=== PATIENT | male | born 1945 | race Caucasian/White ===

== ENCOUNTER 2018-02-05 08:57 | Outpatient (CLI) | payer MEDICARE ==
--- NOTE | 2018-02-11 12:17 | MRI ---
MRI BRAIN WIHTOUT CONTRAST: HISTORY: R41.3, memory loss; R29.6, frequent falls. COMPARISON: None. FINDINGS: On diffusion weighted imaging sequence, there are no abnormal areas of diffusion or restriction to ayon ggest acute infarction. This is confirmed on the ADC map. Moderate susceptibility with imaging sequence. No abnormal areas of hemorrhage. The left vertebral artery is hypoplastic. The [place] flow voids are maintained. There is minimal right quispe radiata gliosis. No midline shift. No mass effect. No hydrocephalus. The globes are intact. The paranasal sinuses are clear as well as the mastoids. Corpus callosum is normal. The marrow signal of the upper cervical spine as well as the clivus is i ntact. IMPRESSION: No acute intracranial abnormality. No evidence of recent infarction or hemorrhage. POS: LIZ
== END 2018-02-05 08:58 | disposition home or self-care (01) ==
LOC: SCSMRI 08:57
PROVIDERS: ATTEND Family Medicine
DX: R41.3 Other amnesia (principal); R29.6 Repeated falls
CPT/HCPCS: 70551

== ENCOUNTER 2020-03-18 05:55 | Day surgery (SDC) | payer MEDICARE ==
[2020-03-17 09:12] VITALS: BMI 23.8
[2020-03-18] MEDS ORDERED: Levofloxacin 500 mg/D5W 100 ml Premix Bag ONE (06:24)
[2020-03-18] MEDS ORDERED: Propofol 500 MG/50 ML VIAL ONE (07:03)
[2020-03-18] MEDS ORDERED: Lidocaine 2% PF 5 ML VIAL ONE (07:04)
[2020-03-18] MEDS ORDERED: B & O ONE ×2 (08:08→08:10)
--- NOTE | 2020-03-18 09:25 | OP ---
DATE OF PROCEDURE: 03/18/2020 SERVICE: Urology. PREOPERATIVE DIAGNOSIS: BPH with urinary obstruction. POSTOPERATIVE DIAGNOSIS: BPH with urinary obstruction. PROCEDURE PERFORMED: UroLift with 6 implants. INDICATIONS FOR PROCEDURE: Mr. Alvarado is a 74-year-old white male with BPH and urinary symptoms. He underwent workup, which demonstrated enlarged prostate with significant hypertrophy. He would be a suitable candidate for UroLift, which we discussed. After risks and benefits, he agreed to proceed forward. DESCRIPTION OF PROCEDURE: After identification of armband and verification of consent, the patient was brought back to the operating room, where he underwent total intravenous anesthesia. He was then placed in dorsal lithotomy position and prepped and draped in usual sterile fashion. After appropriate time-out, a lubricated 21-Gibralt[place] rigid cystoscope was introduced per urethra with visual obturator into the bladder. The bladder showed inflammatory changes throughout, but no tumors or concerning features. The urine was somewhat turbid. The visual obturator was switched out for the UroLift implant gun. The initial implant was placed at the patient's left base of the prostate. It was positioned at the bladder neck and then withdrawn approximately 2.5 cm. At which point, lateral and anterior compression was applied. The safety was released and then the blue trigger squeezed to deploy the Nitinol needle. Tension was set and the capsular tab placed using the tran trigger. The UroLift was then advanced forward until the white line was in the keyhole and then the release for the urethral end piece done with a blue trigger on the back. This resulted in nice compression of the left base of the prostate. This was then repeated on the right base of the prostate and again at the left apex and right apex, which developed a nice channel through the prostate; however, there was sagging from the anterior prostate and the patient did have an elevated bladder neck. I elected to place anterior implants. Two additional implants were placed approximately mid prostate a little toward the bladder neck to raise the anterior aspect of the prostate and bladder neck to create a nice channel. Upon completion, there was a wide-open channel from the patient's bladder neck all the way to the verumontanum. Satisfied the prostate was no longer obstructive. The bladder was left full, and the cystoscope was then removed. An 18-[place] Lopez catheter was placed with ease into the bladder and 10 mL of sterile water was placed into the balloon. This was hooked up to gravity drainage. B and O suppositories were placed in the patient's rectum. He was taken out of positioning, awakened, taken to Day Stay for recovery in stable condition. COMPLICATIONS: None. ESTIMATED BLOOD LOSS: Minimal. RETAINED TUBES AND DRAINS: An 18-[place] Lopez catheter. IMPLANTS USED: Six. DISPOSITION: The patient will give consideration to a void trial based on the amount of bleeding noted in his urine. If he keeps the catheter, he will return tomorrow for a void trial in office. If his catheter is removed today and he is able to urinate, then he will be discharged to home and follow up in approximately 1 week for a postop check. Job ID: [id number]
[2020-03-18] MEDS ORDERED: Lidocaine 1% PF 5 ML VIAL ONE (10:19)
[2020-03-18] MEDS ORDERED: PROPOFOL 200 MG/20 ML VIAL ONE (10:19)
== END 2020-03-18 13:20 | disposition home or self-care (01) ==
LOC: SDC 05:55
PROVIDERS: ATTEND Urology
PROC: 0T7D8DZ Dilation of Urethra with Intraluminal Device, Via Natural or Artificial Opening Endoscopic (ICD-10-PCS; principal; 2020-03-18)
DX: N40.1 Benign prostatic hyperplasia with lower urinary tract symptoms (principal); N13.8 Other obstructive and reflux uropathy; R39.12 Poor urinary stream; R39.15 Urgency of urination; R35.0 Frequency of micturition; R35.1 Nocturia; E11.9 Type 2 diabetes mellitus without complications; R41.3 Other amnesia; Z79.4 Long term (current) use of insulin; Z79.82 Long term (current) use of aspirin; Z79.899 Other long term (current) drug therapy
CPT/HCPCS: 82962; C1889; C9740; 36416; J1956; J2704

== ENCOUNTER 2021-10-21 04:43 | Emergency (ER) | payer MEDICARE, SELFPAY ==
[2021-10-21] MEDS ORDERED: Midazolam HCl 2 mg/2 ml Vial ONE ×3 (04:52→05:44)
[2021-10-21] MEDS ORDERED: Calcium Chloride 1 GM/10 ML Abboject SYRINGE ONE (04:54)
[2021-10-21 05:05] LABS: #Basophils 0.1 thou/uL (0.0-0.2); #Eosinphils 0.6 thou/uL (0.0-0.7); #Lymphocytes 2.1 thou/uL (1.20-3.40); #Monocytes 0.8 thou/uL (0.11-0.59); #Neutrophils 4.5 thou/uL (1.40-6.50); %Basophils 0.6 % (0.0-1.0); %Eosinophils 7.1 % (0.0-10.0); %Monocytes 9.9 % (0.0-10.0); %Neutrophils 56.4 % (42.0-75.0); Hemoglobin 14.5 g/dL (14.0-18.0); Mean Corpuscular HGB CONC 32.9 g/dL (32.0-36.0); Mean Corpuscular Volume 94.3 fL (78.0-98.0); Mean Platelet Volume 5.7 fL (7.4-10.4); Platelet Count 337 thou/uL (130-400); RBC Distribution Width 11.5 % (11.5-14.5); Red Blood Cell (RBC) Count 4.66 mill/uL (4.70-6.10)
[2021-10-21 05:26] LABS: ALT (SGPT) 13 U/L (8-55); AST (SGOT) 14 U/L (5-34); Albumin 3.5 g/dL (3.4-4.8); Alkaline Phosphatase 70 U/L (40-110); Anion Gap 13 mmol/L (10-20); BUN (Urea Nitrogen) 20 mg/dL (8.4-25.7); Bilirubin, Total 0.5 mg/dL (0.2-1.2); CK (CPK) 78 U/L (30-200); Calc. Creatinine Clearance 0 mL/min (70-130); Calcium 8.6 mg/dL (7.8-10.44); Carbon Dioxide 23 mmol/L (23-31); Chloride 110 mmol/L (98-107); Globulin 2.6 g/dL (2.4-3.5); Glucose 185 mg/dL (83-110); Potassium 3.7 mmol/L (3.5-5.1); Protein, Total 6.1 g/dL (5.8-8.1); Sodium 142 mmol/L (136-145)
[2021-10-21 05:58] LABS: SARS-CoV-2 NAA Rapid Test Not Detected (NotDetected)
== END 2021-10-21 05:45 | disposition short-term general hospital (02) ==
LOC: ERS 04:43
DX: I44.2 Atrioventricular block, complete (principal); E11.9 Type 2 diabetes mellitus without complications; I10 Essential (primary) hypertension; Z20.822 Contact with and (suspected) exposure to COVID-19
CPT/HCPCS: 36415; 71045; 80053; 82550; 84484; 85025; 93005; 96374; 96375; 96376; J2250; U0002

== ENCOUNTER 2022-12-06 12:38 | Outpatient (CLI) | payer OTHER | END 2022-12-06 12:39 | disposition home or self-care (01) | LOC: MRI 12:38 | PROVIDERS: ATTEND Neurological Surgery | DX: M25.562 Pain in left knee (principal); S82.435A Nondisplaced oblique fracture of shaft of left fibula, initial encounter for closed fracture; S83.242A Other tear of medial meniscus, current injury, left knee, initial encounter; M22.92 Unspecified disorder of patella, left knee; R60.0 Localized edema; M25.462 Effusion, left knee ==

== ENCOUNTER 2024-05-19 16:13 | Outpatient (CLI) | payer OTHER | END 2024-05-19 16:14 | disposition home or self-care (01) | LOC: BICRAD 16:13 | PROVIDERS: ATTEND Nurse Practitioner Family | DX: M79.89 Other specified soft tissue disorders (principal) ==

== ENCOUNTER 2025-01-16 15:18 | Outpatient (CLI) | payer OTHER | END 2025-01-16 15:19 | disposition home or self-care (01) | LOC: ULT 15:18 | PROVIDERS: ATTEND Orthopaedic Surgery | DX: M47.26 Other spondylosis with radiculopathy, lumbar region (principal) ==

== ENCOUNTER 2025-05-29 11:18 | Outpatient (CLI) | payer OTHER | END 2025-05-29 11:19 | disposition home or self-care (01) | LOC: RAD 11:18 | PROVIDERS: ATTEND Family Medicine | DX: M25.551 Pain in right hip (principal) ==